=== PATIENT | female | born 1985 | race Caucasian/White ===

== ENCOUNTER 2017-04-01 02:47 | Observation (INO) | payer MEDICAID ==
[~2017-04-01] VITALS: Ht 167.6 cm; Wt 65.0 kg
[~2017-04-01 02:47] MED LIST: ALPR-475; AMPH20TA2; FLUO40CA9
[2017-04-01 03:19] LABS: HEMATOCRIT 44.2 % (34.6-47.8); HEMOGLOBIN 15.1 g/dL (11.7-16.4); WHITE BLOOD COUNT 7.2 x10^3/uL (3.4-10)
[2017-04-01] MEDS ORDERED: ZIPRASIDONE 20 MG INJ IM ONE ×2 (03:26→03:30)
[2017-04-01 03:28] LABS: ASPARTATE AMINO TRANSFERASE 48 U/L (15-37); BLOOD UREA NITROGEN 5 mg/dL (7-18)
[2017-04-01 03:36] LABS: ACETAMINOPHEN < 2 mcg/mL (10-30)
[2017-04-01] MEDS ORDERED: POTASSIUM CHLORIDE 20 MEQ TAB.ER.PRT PO ONE ×3 (06:00→12:00)
[2017-04-01] MEDS ORDERED: POTASSIUM CHLORIDE 20 MEQ TAB.ER.PRT ONE (06:40)
[2017-04-01 08:48] LABS: DAU SCREEN DISCLAIMER
[2017-04-01] MEDS ORDERED: ACETAMINOPHEN 325 MG TABLET PO PRN ×2 (12:00→19:30)
[2017-04-01] MEDS ORDERED: ENOXAPARIN 40 MG/0.4 ML SQ SCH ×2 (12:00→15:00)
[2017-04-01] MEDS ORDERED: THIAMINE 100MG TABLET PO SCH ×2 (12:00→19:30)
[2017-04-01] MEDS ORDERED: LORazepam 1MG TABLET PO PRN ×2 (12:00→19:30)
[2017-04-01 12:35] VITALS: BP 116/80
[2017-04-01] MEDS: MAGNESIUM OXIDE 400 MG TABLET PO SCH ×2 (13:14→19:54)
[2017-04-01] MEDS: MULTIVITAMINS/MINERALS TABLET PO SCH (13:15)
[2017-04-01 19:27] VITALS: BP 120/76
[2017-04-02 08:16] VITALS: BP 131/85
[2017-04-02] MEDS: MULTIVITAMINS/MINERALS TABLET PO SCH (08:50)
[2017-04-02] MEDS: MAGNESIUM OXIDE 400 MG TABLET PO SCH (08:51)
[2017-04-02] MEDS ORDERED: POTASSIUM CHLORIDE 20 MEQ TAB.ER.PRT PO SCH (12:00)
== END 2017-04-02 14:19 ==
LOC: ED 04:24 → EDIP 08:18 → 3E 12:12
PROVIDERS: ADMIT Internal Medicine; ATTEND Internal Medicine
DX: T14.91 Suicide attempt (principal); F10.129 Alcohol abuse with intoxication, unspecified; E87.6 Hypokalemia; F17.200 Nicotine dependence, unspecified, uncomplicated; F43.10 Post-traumatic stress disorder, unspecified; F19.10 Other psychoactive substance abuse, uncomplicated; F32.9 Major depressive disorder, single episode, unspecified; Z59.0 Homelessness; X83.8XXA Intentional self-harm by other specified means, initial encounter; Y93.89 Activity, other specified; Y92.89 Other specified places as the place of occurrence of the external cause; Y99.8 Other external cause status
CPT/HCPCS: 36415; 80053; 80307; 80329; 84703; 85025; 96372; 99285; G0378; J3486; G0480